=== PATIENT | male | born 1970 | race Caucasian/White ===

== ENCOUNTER 2018-06-26 09:14 | Emergency (ER) | payer SELFPAY ==
[~2018-06-26] VITALS: Ht 165.1 cm; Wt 59.0 kg
--- OUTSIDE RECORDS SUMMARY | 2018-06-26 09:23 | XMS REPORT ---
Author Author AG HULL [facility] Address [address] [place] [address] Care Team Providers Care Energy Director Name Role Phone AG HULL Unavailable PROBLEMS Type Condition ICD9-CM Code [id number] Code Onset Dates Condition Status SNOMED Code Problem Bulging of lumbar intervertebral disc M51.26 Active 333202429 Problem Back pain with left-sided sciatica M54.32 Active 156278307 Problem Back pain of lumbosacral region with sciatica M54.40 Active 260222299 Problem Lumbago with sciatica, left side M54.42 Active 454687961 Problem Other chronic pain G89.29 Active 69513824 Problem Hypothyroidism (acquired) E03.9 Active 46221522 ALLERGIES Substance Reaction Event Type Date Status Penicillin V Potassium hives Drug Allergy Apr, Active Ibuprofen anaphylaxis Drug Allergy Apr, Active ENCOUNTERS Encounter Location Date Diagnosis [place] [id number] [place] [address] May, [address] [address] May, Low thyroid stimulating hormone (TSH) level R94.6 [place] [id number] [place] [address] May, Hypothyroidism (acquired) E03.9 [facility] [id number] [place] [address] May, Renal lesion N28.[address] [address] May, [facility] [id number] [place] [address] May, [facility] [id number] [place] [address] May, Renal lesion N28.[address] [address] Apr, Bulging of lumbar intervertebral disc M51.26 ; Back pain with left- sided sciatica M54.32 and Hypothyroidism (acquired) E03.[address] [address] Apr, [address] [address] Apr, [facility] [id number] [place] [address] 18 Apr, 2018 Hypothyroidism (acquired) E03.[address] [address] 14 Apr, 2018 Low thyroid stimulating hormone (TSH) level R94.6 [facility] [id number] [place] [address] Mar, [facility] [id number] [place] [address] Mar, [facility] [address] [address] Mar, Lumbago with sciatica, left side M54.42 and Other chronic pain G89.29 [facility] [id number] [place] [address] Mar, Low thyroid stimulating hormone (TSH) level R94.6 [facility] [id number] [place] [address] Mar, Diaphoresis R61 [facility] [address] [address] Feb, Left flank pain R10.9 ; Left medial knee pain M25.562 and Diaphoresis R61 [facility] [id number] [place] [address] Feb, Acute pain of left knee M25.562 [facility] [address] [facility] [id number] [place] [address] Dec, [facility] [address] [facility] [id number] [address] Dec, Lumbar back pain M54.5 [facility] [address] [facility] [id number] [place] [address] Dec, Back pain of lumbosacral region with sciatica M54.40 IMMUNIZATIONS No Known Immunizations SOCIAL HISTORY Never Assessed REASON FOR VISIT MRI results Review PLAN OF CARE Activity Details Follow Up prn Reason: VITAL SIGNS Height 63 in 2018-05-05 Weight 111 lbs 2018-05-05 Temperature 97.6 degrees Fahrenheit 2018-05-05 BMI 19.66 kg/m2 2018-05-05 Blood pressure systolic 100 mmHg 2018-05-05 Blood pressure diastolic 74 mmHg 2018-05-05 MEDICATIONS Medication Instructions Dosage Frequency Start Date End Date Duration Status Cyclobenzaprine HCl 10 MG Orally 2 times a day 1 tablet as needed 12h Feb, Not-Taking Levothyroxine Sodium 25 MCG Orally Once a day 1 tablet on an empty stomach in the morning 24h 18 Apr, 2018 30 day(s) Not-Taking Tramadol HCl 50 MG Orally 2 times a day 1 tablet as needed 12h 30 Mar, 2018 28 days Not-Taking RESULTS No Results PROCEDURES No Known procedures INSTRUCTIONS MEDICATIONS ADMINISTERED No Known Medications MEDICAL (GENERAL) HISTORY Type Description Date Medical History back pain radiates into left leg Medical History Hypothyroidism Surgical History hernia sugery 2003 Hospitalization History surgeries
--- OUTSIDE RECORDS SUMMARY | 2018-06-26 09:23 | XMS REPORT ---
Author Author AG HULL Organization [facility] Address [address] [place] [address] Care Team Providers Care Slab Miller Operator Name Role Phone AG HULL Unavailable PROBLEMS Type Condition ICD9-CM Code [id number] Code Onset Dates Condition Status SNOMED Code Problem Back pain of lumbosacral region with sciatica M54.40 Active 448866672 ALLERGIES Substance Reaction Event Type Date Status Penicillin V Potassium hives Drug Allergy Feb, Active Ibuprofen anaphylaxis Drug Allergy Feb, Active ENCOUNTERS Encounter Location Date Diagnosis [place] [address] [address] Feb, Acute pain of left knee M25.562 [place] [address] [address] Dec, [facility] [address] [address] Dec, Lumbar back pain M54.5 [place] [address] [address] Dec, Back pain of lumbosacral region with sciatica M54.40 IMMUNIZATIONS No Known Immunizations SOCIAL HISTORY Never Assessed REASON FOR VISIT Knee pain-twooden,RMA, pt complaining of having some pain on the left side under the rib cage area, leg gave out on the left side been going on for a couple of months now PLAN OF CARE Activity Details Follow Up prn Reason: VITAL SIGNS Height 5 ft 4 in in 2018-02-17 Weight 114.9 lbs 2018-02-17 Temperature 97.0 degrees Fahrenheit 2018-02-17 Heart Rate 55 bpm 2018-02-17 Respiratory Rate 18 2018-02-17 Oximetry on room air:98 % 2018-02-17 BMI 19.72 kg/m2 2018-02-17 Blood pressure systolic 130 mmHg 2018-02-17 Blood pressure diastolic 90 mmHg 2018-02-17 MEDICATIONS Medication Instructions Dosage Frequency Start Date End Date Duration Status Tramadol HCl 50 MG Orally every 6 hrs 1 tablet as needed 6h Active RESULTS Name Result Date Reference Range Xray : Knee, Left 3 views (IN HOUSE) 2018-02-17 PROCEDURES Procedure Date Ordered Result Body Site X-RAY EXAM OF KNEE, 3 Feb 17, 2018 INSTRUCTIONS MEDICATIONS ADMINISTERED No Known Medications MEDICAL (GENERAL) HISTORY Type Description Date Surgical History hernia sugery 2003 Hospitalization History surgeries
--- OUTSIDE RECORDS SUMMARY | 2018-06-26 09:23 | XMS REPORT ---
Author Author FAUSTINA BADILLO [facility] Address [address] [place] [address] Care Team Providers Care Field Traffic Investigator Name Role Phone FAUSTINA BADILLO Unavailable PROBLEMS Type Condition ICD9-CM Code [id number] Code Onset Dates Condition Status SNOMED Code Problem Bulging of lumbar intervertebral disc M51.26 Active 670840457 Problem Back pain with left-sided sciatica M54.32 Active 426456193 Problem Back pain of lumbosacral region with sciatica M54.40 Active 595871090 Problem Lumbago with sciatica, left side M54.42 Active 211106090 Problem Other chronic pain G89.29 Active 66907439 Problem Hypothyroidism (acquired) E03.9 Active 73963096 ALLERGIES No Information ENCOUNTERS Encounter Location Date Diagnosis [place] [id number] [address] May, [address] [address] May, Low thyroid stimulating hormone (TSH) level R94.6 [facility] [address] [place] [address] 15 May, 2018 Hypothyroidism (acquired) E03.9 [facility] [id number] [place] [address] 15 May, 2018 Renal lesion N28.[address] [address] 14 May, 2018 [facility] [address] [place] [address] 08 May, 2018 [facility] [address] [place] [address] 07 May, 2018 Renal lesion N28.[address] [address] 27 Apr, 2018 Bulging of lumbar intervertebral disc M51.26 ; Back pain with left- sided sciatica M54.32 and Hypothyroidism (acquired) E03.[address] [address] Apr, [address] [address] Apr, [facility] [address] [address] 18 Apr, 2018 Hypothyroidism (acquired) E03.[address] [address] 14 Apr, 2018 Low thyroid stimulating hormone (TSH) level R94.6 [facility] [address] [address] Mar, [facility] [address] [address] Mar, [facility] [address] [address] Mar, Lumbago with sciatica, left side M54.42 and Other chronic pain G89.29 [facility] [id number] [place] [address] Mar, Low thyroid stimulating hormone (TSH) level R94.6 [facility] [address] [address] Mar, Diaphoresis R61 [facility] [address] [address] Feb, Left flank pain R10.9 ; Left medial knee pain M25.562 and Diaphoresis R61 [facility] [id number] [place] [address] Feb, Acute pain of left knee M25.562 [facility] [address] [place] [address] Dec, [facility] [address] [facility] [id number] [address] Dec, Lumbar back pain M54.5 [facility] [address] [facility] [id number] [place] [address] Dec, Back pain of lumbosacral region with sciatica M54.40 IMMUNIZATIONS No Known Immunizations SOCIAL HISTORY Never Assessed REASON FOR VISIT PLAN OF CARE VITAL SIGNS MEDICATIONS Unknown Medications RESULTS No Results PROCEDURES No Known procedures INSTRUCTIONS MEDICATIONS ADMINISTERED No Known Medications MEDICAL (GENERAL) HISTORY Type Description Date Medical History back pain radiates into left leg Medical History Hypothyroidism Surgical History hernia lylaery 2003 Hospitalization History surgeries
--- OUTSIDE RECORDS SUMMARY | 2018-06-26 09:24 | XMS REPORT | Continuity of Care Document ---
Author Organization Unknown Address Unknown Allergies There is no data. Medications There is no data. Problems There is no data. Procedures There is no data. Results Test Result Range TSH - 05/21/18 09:19 TSH 6.07 mIU/L 0.40-4.50 Encounters ACCT No. Visit Date/Time Discharge Status Pt. Type Provider Facility Loc./Unit Complaint [id number] 05/21/2018 09:30:00 05/21/2018 23:59:59 [facility] Outpatient AG HULL [facility] [id number] 05/21/2018 09:30:00 Document Registration
--- OUTSIDE RECORDS SUMMARY | 2018-06-26 09:24 | XMS REPORT ---
Author Author AG HULL Organization [facility] Address [address] [place] [address] Care Team Providers Care Tool Rental Technician Name Role Phone AG HULL Unavailable PROBLEMS Type Condition ICD9-CM Code AUX42-FS Code Onset Dates Condition Status SNOMED Code Problem Back pain of lumbosacral region with sciatica M54.40 Active 862290882 ALLERGIES Substance Reaction Event Type Date Status Penicillin V Potassium hives Drug Allergy Dec, Active Ibuprofen anaphylaxis Drug Allergy Dec, Active ENCOUNTERS Encounter Location Date Diagnosis [facility] [address] [facility] [id number] [address] Dec, [facility] [address] [place] [id number] [address] Dec, Back pain of lumbosacral region with sciatica M54.40 IMMUNIZATIONS No Known Immunizations SOCIAL HISTORY Never Assessed REASON FOR VISIT ER f/u-BENT[place] nuñez, 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 and pain shooting down left leg PLAN OF CARE Activity Details Follow Up prn Reason: VITAL SIGNS Height 5 ft 4 in in 2017-12-09 Weight 109.2 lbs 2017-12-09 Temperature 97.2 degrees Fahrenheit 2017-12-09 Heart Rate 96 bpm 2017-12-09 Respiratory Rate 18 2017-12-09 Oximetry on room air:100 % 2017-12-09 BMI 18.74 kg/m2 2017-12-09 Blood pressure systolic 130 mmHg 2017-12-09 Blood pressure diastolic 98 mmHg 2017-12-09 MEDICATIONS Medication Instructions Dosage Frequency Start Date End Date Duration Status PredniSONE 20 mg Orally Once a day 2 tablets 24h Dec, 5 days Active Baclofen 10 mg Orally Three times a day prn back pain/muscle spasm 1 tablet with food or milk Dec, Dec, 5 days Active Tramadol HCl 50 MG Orally every 6 hrs 1 tablet as needed 6h Active RESULTS No Results PROCEDURES No Known procedures INSTRUCTIONS MEDICATIONS ADMINISTERED No Known Medications MEDICAL (GENERAL) HISTORY Type Description Date [facility]
[2018-06-26] MEDS ORDERED: ONDANSETRON 4 MG (ZOFRAN) ORAL DISSOLVE TAB PO STA (09:39)
[2018-06-26] MEDS ORDERED: fentaNYL INJECTION 100 MCG/2 ML AMP IVP ONE (09:45)
--- NOTE | 2018-06-26 09:52 | ED General ---
General Chief Complaint: Abdominal/GI Problems Stated Complaint: VOMITING/ABD PAIN LOW BACK PAIN Nursing Triage Note: PT REPORTS HE ATE [employer] [facility] LAST PM AND STARTED VOMITING ABOUT 0000 AND THEN DRY HEAVING SINCE 0300. LOWER ABD PAIN AND BACK PAIN. Nursing Sepsis Screen: No Definite Risk History of Present Illness Date Seen by Provider: Jun 26, 2018 Time Seen by Provider: 09:38 This is a 47-year-old man with a history of thyroid problems here for vomiting and left-sided flank pain. He usually has some degree of low back pain but he feels like this is worse than usual, he says that he has a history of bulging disks and a cyst on his kidney. Emesis is nonbilious and nonbloody. He had a normal bowel movement yesterday. He has chronic mild numbness and weakness in the left leg, apparently this is unchanged for at least 8 months and it is not worse today. No dysuria or hematuria or frequency, no incontinence or retention of urine or stool. No fevers. He thinks this may be caused by eating bad food at [employer] yesterday evening. No chest pain or shortness of breath. Allergies and Home Medications Allergies Coded Allergies: No Known Drug Allergies (Unverified , 06/26/18) Patient Home Medication List Home Medication List Reviewed: Yes Review of Systems Review of Systems Constitutional: no symptoms reported EENTM: no symptoms reported Respiratory: no symptoms reported Cardiovascular: no symptoms reported Gastrointestinal: see HPI Genitourinary: no symptoms reported Musculoskeletal: no symptoms reported Skin: no symptoms reported Psychiatric/Neurological: No Symptoms Reported Hematologic/Lymphatic: No Symptoms Reported Immunological/Allergic: no symptoms reported Past Ggwucwk-Zmosxd-Hfbkez Hx Past Med/Social Hx: Reviewed Nursing Past Med/Soc Hx Patient Social History Alcohol Use: Denies Use Recreational Drug Use: No Smoking Status: Unknown if Ever Smoked 2nd Hand Smoke Exposure: Yes Recent Foreign Travel: No Contact w/Someone Who Travel: No Recent Infectious Disease Expo: No Recent Hopitalizations: No Physical Abuse: No Sexual Abuse: No Mistreated: No Fear: No Seasonal Allergies Seasonal Allergies: No Past Medical History Surgeries: No Respiratory: No Cardiac: No Neurological: No Genitourinary: No Gastrointestinal: No Musculoskeletal: Yes Chronic Back Pain Endocrine: Yes Hypothyroidsim HEENT: No Cancer: No Psychosocial: No Integumentary: No Physical Exam Vital Signs Vital Signs - First Documented 06/26/18 09:37 Temp 97.4 Pulse 81 Resp 18 B/P (MAP) 143/102 (116) O2 Delivery Room Air Capillary Refill : Less Than 3 Seconds Height, Weight, BMI Height: 5'5.00" Weight: 130lbs. oz. 58.620401qa; BMI Method:Stated General Appearance: No Apparent Distress Eyes: Bilateral Eye PERRL, Bilateral Eye EOMI HEENT: Moist Mucous Membranes Neck: Supple Respiratory: Lungs Clear Cardiovascular: Regular Rate, Rhythm, Normal Peripheral Pulses Gastrointestinal: Soft, Other (mild diffuse tenderness without rebound, rigidity, or guarding) Back: Other (no midline tenderness, there is mild tenderness in the lumbar musculature on the left side, normal inspection) Neurologic/Psychiatric: Other (patient has mild chronic weakness in the left leg, he is able to hold both legs off the bed however, sensation to light touch is intact bilaterally) Skin: Warm/Dry Progress/Results/Core Measures Suspected Sepsis Recent Fever Within 48 Hours: No Infection Criteria Present: None New/Unexplained Altered Menta: No Sepsis Screen: No Definite Risk SIRS Temperature:97.4 Pulse: 81 Respiratory Rate: 18 Laboratory Tests 06/26/18 09:50: White Blood Count 13.2H Blood Pressure 143 /102 Mean: 116 Laboratory Tests 06/26/18 09:50: Creatinine 1.04, Platelet Count 384, Total Bilirubin 0.5 Results/Orders Lab Results Laboratory Tests Test 06/26/18 09:50 06/26/18 11:10 Range/Units White Blood Count 13.2 H 4.3-11.0 10^3/uL Red Blood Count 5.31 4.35-5.85 10^6/uL Hemoglobin 15.8 13.3-17.7 G/DL Hematocrit 47 40-54 % Mean Corpuscular Volume 89 80-99 FL Mean Corpuscular Hemoglobin 30 25-34 PG Mean Corpuscular Hemoglobin Concent 34 32-36 G/DL Red Cell Distribution Width 13.0 10.0-14.5 % Platelet Count 384 130-400 10^3/uL Mean Platelet Volume 10.3 7.4-10.4 FL Sodium Level 144 135-145 MMOL/L Potassium Level 4.1 3.6-5.0 MMOL/L Chloride Level 102 98-107 MMOL/L Carbon Dioxide Level 29 21-32 MMOL/L Anion Gap 13 5-14 MMOL/L Blood Urea Nitrogen 10 7-18 MG/DL Creatinine 1.04 0.60-1.30 MG/DL Estimat Glomerular Filtration Rate > 60 BUN/Creatinine Ratio 10 Glucose Level 136 H 70-105 MG/DL Calcium Level 10.1 8.5-10.1 MG/DL Corrected Calcium 8.5-10.1 MG/DL Total Bilirubin 0.5 0.1-1.0 MG/DL Aspartate Amino Transf (AST/SGOT) 19 5-34 U/L Alanine Aminotransferase (ALT/SGPT) 13 0-55 U/L Alkaline Phosphatase 83 40-136 U/L Total Protein 7.7 6.4-8.2 GM/DL Albumin 5.1 H 3.2-4.5 GM/DL Lipase 33 8-78 U/L Urine Color YELLOW Urine Clarity CLEAR Urine pH 7.0 5-9 Urine Specific [place] 1.020 1.016-1.022 Urine Protein TRACE H NEGATIVE Urine Glucose (UA) NEGATIVE NEGATIVE Urine Ketones NEGATIVE NEGATIVE Urine Nitrite NEGATIVE NEGATIVE Urine Bilirubin NEGATIVE NEGATIVE Urine Urobilinogen 0.2 NORMAL MG/DL Urine Leukocyte Esterase NEGATIVE NEGATIVE Urine RBC (Auto) NEGATIVE NEGATIVE Urine RBC NONE /HPF Urine WBC RARE /HPF Urine Squamous Epithelial Cells NONE /HPF Urine Crystals NONE /LPF Urine Bacteria NEGATIVE /HPF Urine Casts NONE /LPF Urine Mucus MODERATE H /LPF Urine Culture Indicated NO My Orders Orders - GOMEZ ESPOSITO DO Ondansetron Oral Dissolve Tab (Zofran (06/26/18 09:39) Ct Abd/Pelvis Wo(Kidney Stone) (06/26/18 09:45) Ua Culture If Indicated (06/26/18 09:45) Cbc No Diff (06/26/18 09:45) Comprehensive Metabolic Panel (06/26/18 09:45) Lipase (06/26/18 09:45) Ekg Tracing (06/26/18 09:45) Fentanyl Injection (Sublimaze Injection (06/26/18 09:45) Ondansetron Injection (Zofran Injectio (06/26/18 10:00) Promethazine Injection (Phenergan Injec (06/26/18 11:45) Ns Iv 1000 Ml (Sodium Chloride 0.9%) (06/26/18 11:32) Promethazine Injection (Phenergan Injec (06/26/18 11:30) Medications Given in ED Current Medications Medications Dose Ordered Sig/Mai Route Start Time Stop Time Status Last Admin Dose Admin Fentanyl Citrate 50 mcg ONCE ONCE IVP 06/26/18 09:45 06/26/18 09:48 DC 06/26/18 09:53 50 MCG Ondansetron HCl 8 mg ONCE ONCE IVP 06/26/18 10:00 06/26/18 10:01 DC 06/26/18 09:52 8 MG Vital Signs/I&O 06/26/18 09:37 Temp 97.4 Pulse 81 Resp 18 B/P (MAP) 143/102 (116) O2 Delivery Room Air Capillary Refill : Less Than 3 Seconds Blood Pressure Mean: 116 Progress Note #1: Progress Note This is a 47-year-old man with a history of thyroid problems, renal cyst, herniated lumbar disks and chronic back pain, here with vomiting and increase in chronic left-sided back pain. He does have mild abdominal tenderness. In this 47-year-old man with vomiting we will check an EKG as a screen for cardiac ischemia although suspicion is low. We will obtain a CT of the abdomen and pelvis to evaluate for ureterolithiasis, less likely AAA. We will check a urinalysis, basic labs. We will treat him symptomatically and we will continue to monitor. Progress Note #2: Progress Note Patient states that his inguinal hernia is chronic, sometimes it causes him some discomfort but it is not causing him discomfort at this time. It is not firm and on CT it does not appear to be the cause of his vomiting as from a bowel obstruction. Patient is admitted to [facility] under Dr. Vazquez, she does have surgery available at that facility. Departure Impression Primary Impression: Ileus Additional Impression: Inguinal hernia Disposition: XFER SHT-TRM HOSP Condition: Stable Transfer Time Spoke to Accepting Phy: 11:[address] Vazquez accepts pt to [facility] for ileus. Method of Transfer: EMS Departure-Patient Inst. Referrals: [facility] [place]) Primary Care Physician GOMEZ ESPOSITO DO Jun 26, 2018 09:52
[2018-06-26] MEDS ORDERED: ONDANSETRON 4 MG/2 ML (SDV) Z0FRAN IVP ONE (10:00)
[2018-06-26 10:36] LABS: CARBON DIOXIDE 29 MMOL/L (21-32); CHLORIDE 102 MMOL/L (98-107); POTASSIUM 4.1 MMOL/L (3.6-5.0); SODIUM 144 MMOL/L (135-145)
[2018-06-26 10:37] LABS: ALANINE AMINOTRANSFERASE 13 U/L (0-55); ALBUMIN 5.1 GM/DL (3.2-4.5); ALKALINE PHOSPHATASE 83 U/L (40-136); BILIRUBIN,TOTAL 0.5 MG/DL (0.1-1.0); BUN/CREATININE RATIO 10; CALCIUM 10.1 MG/DL (8.5-10.1); CREATININE SERUM 1.04 MG/DL (0.60-1.30); GFR ESTIMATED > 60; GLUCOSE 136 MG/DL (70-105); LIPASE 33 U/L (8-78); TOTAL PROTEIN 7.7 GM/DL (6.4-8.2)
[2018-06-26 10:40] LABS: HEMOGLOBIN 15.8 G/DL (13.3-17.7); MEAN PLATELET VOLUME 10.3 FL (7.4-10.4); WHITE BLOOD COUNT 13.2 10^3/uL (4.3-11.0)
--- NOTE | 2018-06-26 10:55 | Diagnostic Imaging Report ---
PROCEDURE: CT urinary tract, rule out kidney stone. TECHNIQUE: Multiple contiguous axial images were obtained through the abdomen and pelvis without the use of intravenous contrast. Auto Exposure Controls were utilized during the CT exam to meet ALARA standards for radiation dose reduction. INDICATION: Bilateral flank pain, left worse than right. COMPARISON: None FINDINGS: The lung bases are clear. The heart is normal in size. The liver demonstrates no focal lesions. The spleen appears normal. The pancreas is normal. The adrenal glands appear normal. There is mild calcific atherosclerosis. No renal calculi are seen. There is no hydronephrosis bilaterally. The appendix is normal (image 56 series 2). There is moderate stool in the proximal colon. There are multiple mildly prominent loops of small bowel which are predominantly fluid-filled and appear to remain less than 3 cm in diameter. This may be due to an ileus, with low-grade partial small bowel obstruction thought less likely. There is a small amount of fluid in the pelvis. The bladder demonstrates no focal calculi. There is a moderate size left inguinal hernia which contains a loop of sigmoid colon. This does not appear obstructed or strangulated. No acute osseous abnormality is seen. IMPRESSION: 1. Mildly prominent loops of small bowel, most likely due to ileus. Low-grade partial small bowel obstruction is thought less likely. 2. Small amount of free fluid in the pelvis. 3. Moderate-sized left inguinal hernia containing a loop of sigmoid colon without evidence of obstruction or strangulation. 4. No renal calculi or hydronephrosis. Dictated by: Dictated on workstation # [id number]
[2018-06-26 11:24] LABS: BACTERIA,URINE NEGATIVE /HPF; BILIRUBIN,URINE NEGATIVE (NEGATIVE); CLARITY,URINE CLEAR; COLOR,URINE YELLOW; GLUCOSE, URINE (UA) NEGATIVE (NEGATIVE); KETONES,URINE NEGATIVE (NEGATIVE); LEUKOCYTE ESTERASE ,URINE NEGATIVE (NEGATIVE); NITRITE,URINE NEGATIVE (NEGATIVE); PROTEIN,URINE TRACE (NEGATIVE); UROBILINOGEN,URINE 0.2 MG/DL (NORMAL); WBC,URINE RARE /HPF
[2018-06-26] MEDS ORDERED: PROMETHAZINE INJ 25 MG/ML (PHENERGAN) AMP ONE (11:30)
[2018-06-26] MEDS ORDERED: NS IV 1000 ML 1,000 ML IV STA (11:32)
[2018-06-26] MEDS ORDERED: PROMETHAZINE INJ 25 MG/ML (PHENERGAN) AMP IM ONE (11:45)
[2018-06-26 12:10] VITALS: BP 124/63
== END 2018-06-26 12:15 | disposition short-term general hospital (02) ==
LOC: EDUNIT# 09:14 → ER FS 09:19
DX: K56.7 Ileus, unspecified (principal); K40.90 Unilateral inguinal hernia, without obstruction or gangrene, not specified as recurrent; E03.9 Hypothyroidism, unspecified; Z77.22 Contact with and (suspected) exposure to environmental tobacco smoke (acute) (chronic)
CPT/HCPCS: 36415; 74176; 80053; 81000; 83690; 85027; 93005

== ENCOUNTER 2018-12-12 12:00 | Emergency (ER) | payer SELFPAY ==
[~2018-12-12] VITALS: Ht 162.7 cm; Wt 52.6 kg
--- NOTE | 2018-12-12 12:26 | ED Upper Extremity ---
General Chief Complaint: Laceration Stated Complaint: FINGER INJ Source: patient History of Present Illness Date Seen by Provider: Dec 12, 2018 Time Seen by Provider: 12:20 Initial Comments The patient is a 48-year-old white male who had been splitting limbs for the purpose of KINDLING. He was holding the limb with his left hand and attempting to split it with a hatchet in his right hand. He missed and shaved the tip of his left index finger. Onset: just prior to arrival Pain/Injury Location: left 2nd finger Method of Injury: direct blow Allergies and Home Medications Allergies Coded Allergies: ibuprofen (Verified Allergy, Severe, 06/26/18) Patient Home Medication List Home Medication List Reviewed: Yes Review of Systems Constitutional: see HPI EENTM: no symptoms reported Respiratory: no symptoms reported Cardiovascular: no symptoms reported Gastrointestinal: no symptoms reported Genitourinary: no symptoms reported Musculoskeletal: see HPI Past Weiyrno-Pbsxmm-Yvlzdq Hx Patient Social History 2nd Hand Smoke Exposure: Yes Recent Hopitalizations: No Seasonal Allergies Seasonal Allergies: No Past Medical History Surgeries: No Respiratory: No Cardiac: No Neurological: No Genitourinary: No Gastrointestinal: No Musculoskeletal: Yes Chronic Back Pain Endocrine: Yes Hypothyroidsim HEENT: No Cancer: No Psychosocial: No Integumentary: No Physical Exam Vital Signs Capillary Refill : Height, Weight, BMI Height: 5'5.00" Weight: 130lbs. oz. [id number]; BMI Method:Stated General Appearance: no apparent distress Cardiovascular: normal peripheral pulses, regular rate, rhythm, no edema, no gallop, no JVD, no murmur Respiratory: chest non-tender, lungs clear, normal breath sounds, no respiratory distress, no accessory muscle use Departure Communication (Admissions) Family Conversation The left hand was soaked in warm soapy water. The shave wound continued to bleed and therefore a turnicot was applied which controlled the blood flow. The wound was dried with 4 x 4's and skin glue was applied. This worked nicely. The finger was then splinted with tube gauze. Impression Primary Impression: shave-type dermal laceration left second fingertip Disposition: HOME, SELF-CARE Condition: Improved Departure-Patient Inst. Decision time for Depature: 12:44 Referrals: [facility] (PCP) Primary Care Physician JUSTINO,FAUSTINA J CAPTAIN WAITER/WAITRESS (Family) Primary Care Physician Patient Instructions: Skin Abrasions (DC) Add. Discharge Instructions: All discharge instructions reviewed with patient and/or family. Voiced understanding. Keep clean and dry. If the fingertip throbs carry it higher than the elbow. If no soiling of the dressing leave it on until Thursday morning. Images Extremities-Upper 1 - Mild 2 - MAHESH BUTTS MD Dec 12, 2018 12:26
[2018-12-12 12:44] VITALS: BP 154/84
== END 2018-12-12 12:51 | disposition home or self-care (01) ==
LOC: EDUNIT# 12:00 → ER FS 12:02
DX: S61.211A Laceration without foreign body of left index finger without damage to nail, initial encounter (principal); E03.9 Hypothyroidism, unspecified; Z88.6 Allergy status to analgesic agent; Z77.22 Contact with and (suspected) exposure to environmental tobacco smoke (acute) (chronic); W22.8XXA Striking against or struck by other objects, initial encounter

== ENCOUNTER 2019-03-24 11:16 | Outpatient (RCR) | payer OTHER | END 2019-06-22 | disposition home or self-care (01) | LOC: CARD 11:16 | PROVIDERS: ATTEND Nurse Practitioner | DX: R00.2 Palpitations (principal); R55 Syncope and collapse; R00.0 Tachycardia, unspecified | CPT/HCPCS: 93225; 93226 ==

== ENCOUNTER → 2019-04-19 | Outpatient (CLI) | payer SELFPAY ==
--- NOTE | 2019-04-19 09:50 | Diagnostic Imaging Report ---
INDICATION: Trauma with chest wall pain. FINDINGS: No lung contusion, pneumothorax, or hemothorax. No free air beneath the left diaphragm. The cardiomediastinal and hilar contours are normal. No appreciable pleural hematoma. No rib fracture deformity is identified. IMPRESSION: Unremarkable left rib series. Dictated by: Dictated on workstation # [id number]
== END ==
LOC: RAD FS 09:33
PROVIDERS: ATTEND Nurse Practitioner Family
DX: R10.9 Unspecified abdominal pain (principal)
CPT/HCPCS: 71100

== ENCOUNTER → 2019-04-25 | Outpatient (CLI) | payer OTHER ==
[~2019-04-25] MED LIST: CATHETER FLUSH 10 ML SYR IV PRN; HOLD METFORMIN - RECEIVED CONTRAST 20 ML VIAL IV SCH; IOHEXOL 350 MG/ML 100 ML (OMNIPAQUE 350) VIAL IV ONE; NS 100 ML (IVPB) BAG IV ONE
--- NOTE | 2019-04-25 12:04 | Diagnostic Imaging Report ---
EXAMINATION: CT abdomen and pelvis with and without intravenous contrast. TECHNIQUE: Precontrast acquisitions were acquired through the abdomen and pelvis. Multiple contiguous axial images were obtained through the abdomen and pelvis after the administration of intravenous contrast. All CT scans use one or more of the following dose optimizing techniques: Automated exposure control, MA and/or KvP adjustment based on a patient size and exam type, or iterative reconstruction. HISTORY: Left flank pain. COMPARISON: 06/26/2018. FINDINGS: Limited views of the lower thorax are unremarkable. The liver is normal without focal lesion. There is no biliary ductal dilation. Gallbladder is normal. Pancreas is normal. Spleen is normal. Adrenal glands are normal. There is a stable 9 mm low attenuating left renal lesion which may represent a cyst. However, this is too small to accurately characterize as contrast dynamics. There is no hydronephrosis. Urinary bladder is normal. There is a large left inguinal hernia containing colon. Visualized bowel is normal in caliber without obstruction or inflammation. No free fluid or air. No abdominal or pelvic lymphadenopathy. Aorta is normal in caliber without aneurysm. There are no suspicious osseous lesions. IMPRESSION: 1. Large left inguinal hernia containing colon. 2. Indeterminate left renal lesion is likely a cyst but too small to characterize its enhancement characteristics due to partial volume averaging effects. Consider follow-up exam in six months to ensure stability. Dictated by: Dictated on workstation # [id number]
== END ==
LOC: RAD 10:58
PROVIDERS: ATTEND Nurse Practitioner Family
DX: K40.90 Unilateral inguinal hernia, without obstruction or gangrene, not specified as recurrent (principal); N28.9 Disorder of kidney and ureter, unspecified
CPT/HCPCS: 74178

== ENCOUNTER → 2019-04-25 | Outpatient (CLI) | payer OTHER | LOC: CARD 10:56 | PROVIDERS: ATTEND Internal Medicine Cardiovascular Disease | DX: R55 Syncope and collapse (principal); R42 Dizziness and giddiness; Z72.0 Tobacco use; Z53.8 Procedure and treatment not carried out for other reasons ==

== ENCOUNTER → 2019-07-29 | Outpatient (CLI) | payer SELFPAY ==
--- NOTE | 2019-07-29 10:31 | Diagnostic Imaging Report ---
PROCEDURE: CT head without contrast. TECHNIQUE: Multiple contiguous axial images were obtained through the brain without the use of intravenous contrast. Auto Exposure Controls were utilized during the CT exam to meet ALARA standards for radiation dose reduction. DATE: July 29, 2019. COMPARISON: None. INDICATION: 48-year-old male, intermittent episodes of syncope for the past 5 months. FINDINGS: There is mild mucosal thickening of the ethmoidal air cells and partial opacification within a right anterior ethmoidal air cells. The patient does appear to be status post functional endoscopic sinus surgery. There is mild mucosal thickening of the right sphenoid sinus. The mastoid air cells and middle ears are well-aerated bilaterally. The ventricles and cerebral spinal fluid spaces are of normal size and configuration for the patient's age. There is no mass effect or midline shift. There is no acute intracranial hemorrhage. There is no abnormal extra-axial fluid collection. IMPRESSION: 1. No identified acute intracranial abnormality. Dictated by: Dictated on workstation # [id number]
== END ==
LOC: RAD FS 09:39
PROVIDERS: ATTEND Nurse Practitioner Family
DX: R55 Syncope and collapse (principal); Z91.89 Other specified personal risk factors, not elsewhere classified
CPT/HCPCS: 70450

== ENCOUNTER 2019-12-05 13:29 | Emergency (ER) | payer SELFPAY ==
[~2019-12-05] VITALS: Ht 162 cm; Wt 55.0 kg
--- NOTE | 2019-12-05 13:48 | ED Fall/Injury ---
General Stated Complaint: RT SHOULDER INJ Source: patient, RN/MD, RN notes reviewed Exam Limitations: no limitations History of Present Illness Date Seen by Provider: Dec 05, 2019 Time Seen by Provider: 13:35 Initial Comments This patient is a 49-year-old male that presents to the emergency department with complaint of right shoulder is comfort. Patient states been hurting for several days and attributes it to lifting stuff while working at [employer]. Patient also states he fell on his right shoulder yesterday complaining of increased pain. Patient does have full range of motion of the right shoulder. Patient states pain with lifting her arm against resistance. Consistent with rotator cuff injury. However the patient was offered a full medical screening exam including x-rays patient declines. Patient also believes it's a rotator cuff injury or strain. I did discuss at length with patient with options. Patient was offered a sling patient encouraged to rest ice his shoulder alternate heat and ice and follow up with PCP within one week if not improved may need to be referred to orthopedics. Patient states understanding. Patient be discharged home per his request. Occurred: last week Severity: mild Injuries/Pain Location: upper extremity Context: unknown Loss of Consciousness: no loss of consciousness Allergies and Home Medications Allergies Coded Allergies: ibuprofen (Verified Allergy, Severe, 06/26/18) Penicillins (Verified Allergy, Unknown, 12/12/18) Patient Home Medication List Home Medication List Reviewed: Yes Review of Systems Review of Systems Constitutional: No no symptoms reported; see HPI; No chills, No diaphoresis, No dizziness, No fever, No malaise, No weakness, No weight gain, No weight loss, No other Eyes: Denies No Symptoms Reported, Denies See HPI, Denies Blindness, Denies Blurred Vision, Denies Drainage, Denies Decreased Acuity, Denies Foreign Body Sensation, Denies Inflammation, Denies Pain, Denies Photophobia, Denies Previous Injury, Denies Shadows, Denies Tunnel Vision, Denies Vision Changes, Denies Contact Lenses, Denies Glasses, Denies Other Ears, Nose, Mouth, Throat: denies no symptoms reported, denies see HPI, denies ear pain, denies ear discharge, denies nose pain, denies nose discharge, denies epistaxis, denies mouth pain, denies mouth swelling, denies loose teeth, denies throat pain, denies throat swelling Respiratory: No no symptoms reported, No see HPI, No cough, No dyspnea on exertion, No hemoptysis, No orthopnea, No phlegm, No short of breath, No stridor, No wheezing, No other Cardiovascular: No no symptoms reported, No see HPI, No chest pain, No edema, No Hx of Intervention, No palpitations, No syncope, No vascular heart diseas, No other Gastrointestinal: No RUQ, No LUQ, No RLQ, No LLQ, No no symptoms reported, No see HPI, No abdominal pain, No constipation, No diarrhea, No dysphagia, No hematemesis, No heartburn, No jaundice, No loss of appetite, No melena, No nausea, No vomiting, No other Genitourinary: No no symptoms reported, No see HPI, No decreased output, No discharge, No dysuria, No frequency, No hematuria, No hesitancy, No incontinence, No nocturia, No pain, No other Musculoskeletal: No no symptoms reported; see HPI; No back pain, No gout, No joint pain, No joint swelling, No muscle pain, No muscle stiffness, No muscle cramps, No muscle twitching, No muscle weakness, No neck pain, No other Skin: No no symptoms reported, No see HPI, No change in color, No change in hair/nails, No dryness, No hx of skin cancer, No lesions, No lumps, No pruritus, No rash, No other All Other Systems Reviewed Negative Unless Noted: Yes Past Xfzwmwf-Ychrkx-Oplfxr Hx Patient Social History Type Used: Cigarettes 2nd Hand Smoke Exposure: Yes Recent Foreign Travel: No Contact w/Someone Who Travel: No Recent Hopitalizations: No Immunizations Up To Date Tetanus Booster (TDap): Less than 5yrs Seasonal Allergies Seasonal Allergies: No Past Medical History Surgeries: Yes (hernia repair) Respiratory: No Cardiac: No Neurological: No Genitourinary: No Gastrointestinal: No Musculoskeletal: Yes Chronic Back Pain Endocrine: Yes Hypothyroidsim HEENT: No Cancer: No Psychosocial: No Integumentary: No Physical Exam Vital Signs Capillary Refill : Height, Weight, BMI Height: 5'5.00" Weight: 130lbs. oz. [id number]; 19.00 BMI Method:Stated General Appearance: WD/WN, no apparent distress Cardiovascular: normal peripheral pulses, regular rate, rhythm, no edema, no gallop, no JVD, no murmur Respiratory: chest non-tender, lungs clear, normal breath sounds, no r espiratory distress, no accessory muscle use Back: normal inspection, no CVA tenderness, no vertebral tenderness Extremities: normal range of motion, non-tender, normal inspection, no pedal edema, no calf tenderness, normal capillary refill, other (questionable weakness some tenderness posteriorly upon rotator cuff exam. Otherwise normal exam and no signs of injury or deficit.) Progress/Results/Core Measures Progress Progress Note : Time: 13:46 Progress Note Rest use sling for her right shoulder as needed. Alternate heat and ice. Tylenol as needed for pain. Follow-up your primary care physician within one week for further evaluation. If no improvement may need to be referred to orthopedic for evaluation. Patient states understanding patient was offered full medical scre ening exam but declined Discharged home per his request Departure Impression Primary Impression: Shoulder strain Disposition: 01 HOME, SELF-CARE Condition: Stable Departure-Patient Inst. Decision time for Depature: 13:47 Referrals: [facility] (PCP) Primary Care Physician LOLA MAN APRN (Family) Primary Care Physician Patient Instructions: Shoulder Sprain Add. Discharge Instructions: Rest use sling for her right shoulder as needed. Alternate heat and ice. Tylenol as needed for pain. Follow-up your primary care physician within one week for further evaluation. If no improvement may need to be referred to orthopedic for evaluation. FOREST DE JESUS MD Dec 05, 2019 13:48
[2019-12-05 13:49] VITALS: BP 131/80
== END 2019-12-05 13:51 | disposition home or self-care (01) ==
LOC: EDUNIT# 13:29 → ER FS 13:31
DX: S46.011A Strain of muscle(s) and tendon(s) of the rotator cuff of right shoulder, initial encounter (principal); Z88.0 Allergy status to penicillin; Z88.6 Allergy status to analgesic agent; Z77.22 Contact with and (suspected) exposure to environmental tobacco smoke (acute) (chronic); X50.0XXA Overexertion from strenuous movement or load, initial encounter
CPT/HCPCS: 99282; A4565

== ENCOUNTER 2021-06-18 17:53 | Emergency (ER) | payer SELFPAY | END 2021-06-18 18:32 | disposition left against medical advice (07) | LOC: EDUNIT# 17:53 → ER FS 17:54 | DX: R10.9 Unspecified abdominal pain (principal) ==